=== PATIENT | male | born 1955 | race Caucasian/White ===

== ENCOUNTER 2016-07-27 11:04 | Day surgery (SDCO) | payer OTHER ==
[2016-07-27 11:03] LABS: BASOPHIL 0.5 % (0-2); EOSINOPHIL 1.8 % (0-5); HCT 45.6 % (42.0-52.0); HGB 15.9 g/dl (13.2-18.0); LYMPHOCYTE 27.4 % (15-48); MCH 32.1 pg (25.0-31.0); MCHC 34.9 g/dL (32.0-36.0); MCV 91.9 fL (78.0-100.0); MONOCYTE 7.3 % (0-12); MPV 9.9 fL (6.0-9.5); PLT 211 K/uL (150-400); RBC 4.96 M/uL (4.70-6.00); RDW 12.8 % (11.5-14.0); WBC 5.6 K/uL (4.0-10.5)
[2016-07-27 11:13] LABS: INR 0.94 (0.9-1.2); PROTHROMBIN TIME 12.2 SECONDS (11.7-14.0); PTT 28.2 SECONDS (23.2-31.4)
[2016-07-27 11:23] LABS: ALBUMIN 4.5 g/dL (3.4-4.8); BILIRUBIN - TOTAL 0.5 mg/dL (0.1-1.0); GLOBULIN (CALCULATION) 2.9 g/dL (2.2-4.2); MAGNESIUM 2.07 mg/dL (1.40-2.10); POTASSIUM 4.5 mmol/L (3.5-5.1); TOTAL PROTEIN 7.4 g/dL (6.4-8.3)
[2016-07-27 11:26] LABS: CKMB 2.99 ng/mL (0.97-4.94); MYOGLOBIN 38 ng/mL (26-65); PRO-BNP 63 pg/mL (0-125); TROPONIN T < 0.010 ng/mL
[2016-07-27 19:40] LABS: CKMB 2.17 ng/mL (0.97-4.94); TROPONIN T < 0.010 ng/mL
[2016-07-28 04:19] LABS: BASOPHIL 0.3 % (0-2); EOSINOPHIL 1.7 % (0-5); HCT 42.8 % (42.0-52.0); HGB 14.8 g/dl (13.2-18.0); MCH 31.9 pg (25.0-31.0); MCHC 34.6 g/dL (32.0-36.0); MCV 92.2 fL (78.0-100.0); MONOCYTE 8.3 % (0-12); MPV 9.7 fL (6.0-9.5); NEUTROPHIL 70.7 % (41-80); PLT 200 K/uL (150-400); RBC 4.64 M/uL (4.70-6.00); RDW 12.6 % (11.5-14.0); WBC 6.5 K/uL (4.0-10.5)
[2016-07-28 04:40] LABS: POTASSIUM 4.7 mmol/L (3.5-5.1)
== END 2016-07-28 12:00 | disposition admitted as inpatient to this hospital (09) ==
LOC: FER 11:04 → FTCU 14:25
PROVIDERS: Emergency Medicine; ADMIT Internal Medicine
DX: I24.9 Acute ischemic heart disease, unspecified (principal); I10 Essential (primary) hypertension; E11.9 Type 2 diabetes mellitus without complications; G20 Parkinson's disease; Z88.2 Allergy status to sulfonamides; Z82.49 Family history of ischemic heart disease and other diseases of the circulatory system; Z79.82 Long term (current) use of aspirin; Z79.84 Long term (current) use of oral hypoglycemic drugs; Z79.899 Other long term (current) drug therapy; Z98.890 Other specified postprocedural states
CPT/HCPCS: 36415; 71010; 80048; 80053; 80061; 82550; 82553; 82962; 83036; 83735; 83874; 83880; 84484; 85025; 85610; 85730; 93005; 94010; G0378; J2405

== ENCOUNTER → 2020-09-08 | Day surgery (SDC) | payer OTHER ==
[~2020-09-08] MED LIST: ASPIRIN EC325 MG PO; AZITHROMYCIN250 MG PO; CARBIDOPA-LEVO1 EAC2 PO; CEFDINIR300 MG PO; COZAAR50 MG PO; CRESTOR10 MG PO; FOLIC ACID1 MG PO; GLUCOTROL10 MG PO; HCTZ12.5 MG PO; LIPITOR 10MG TA10 MG PO; MEDROL 4MG DOSEP4 MG PO; METFORMIN HCL500 MG PO; PROTONIX 40MG T40 MG PO; SYMBICORT 80-10.2 GM INH; TENORMIN50 MG PO; VENTOLIN HFA IN18 GM INH; VITAMIN B-121000 MC1 PO; vitamin B3 PO
[2020-09-08 08:20] LABS: HCT 42.2 % (42.0-52.0); HGB 14.7 g/dl (13.2-18.0); MCH 33.3 pg (25.0-31.0); MCHC 34.8 g/dL (32.0-36.0); MCV 95.5 fL (78.0-100.0); MPV 9.4 fL (6.0-9.5); RBC 4.42 M/uL (4.70-6.00); RDW 12.8 % (11.5-14.0); WBC 6.7 K/uL (4.0-10.5)
[2020-09-08 08:30] LABS: ALBUMIN 4.1 g/dL (3.4-5.0); BILIRUBIN - TOTAL 0.7 mg/dL (0.2-1.0); BUN/CREAT RATIO (CALC) 14.6 RATIO; CREATININE 1.03 mg/dL (0.67-1.17); GLOBULIN (CALCULATION) 3.5 g/dL; POTASSIUM 4.4 mmol/L (3.5-5.1); TOTAL PROTEIN 7.6 g/dL (6.4-8.2)
== END | disposition home or self-care (01) ==
LOC: FAS 07:39
PROVIDERS: Surgery
DX: Z12.11 Encounter for screening for malignant neoplasm of colon (principal); K57.30 Diverticulosis of large intestine without perforation or abscess without bleeding; D12.6 Benign neoplasm of colon, unspecified; J45.909 Unspecified asthma, uncomplicated; I25.10 Atherosclerotic heart disease of native coronary artery without angina pectoris; I10 Essential (primary) hypertension; K21.9 Gastro-esophageal reflux disease without esophagitis; E11.9 Type 2 diabetes mellitus without complications; E78.5 Hyperlipidemia, unspecified; G20 Parkinson's disease; Z20.822 Contact with and (suspected) exposure to COVID-19; Z88.2 Allergy status to sulfonamides; Z79.84 Long term (current) use of oral hypoglycemic drugs; Z79.899 Other long term (current) drug therapy; Z98.890 Other specified postprocedural states; Z87.891 Personal history of nicotine dependence; Z86.010 Personal history of colon polyps
CPT/HCPCS: 36415; 71045; 80053; 82962; J1610; J2250; J2704; J7120

== ENCOUNTER 2020-09-10 10:39 | Day surgery (SDCO) | payer OTHER, MEDICARE ==
[~2020-09-10] VITALS: Ht 185.4 cm; Wt 109.4 kg
[~2020-09-10 10:39] MED LIST changes: -ASPIRIN EC325 MG PO; -AZITHROMYCIN250 MG PO; -CEFDINIR300 MG PO; -CRESTOR10 MG PO; -LIPITOR 10MG TA10 MG PO; -MEDROL 4MG DOSEP4 MG PO; -PROTONIX 40MG T40 MG PO
[2020-09-10 12:16] LABS: BASOPHIL 0.5 % (0-2); EOSINOPHIL 2.3 % (0-7); HCT 41.3 % (42.0-52.0); HGB 14.3 g/dl (13.2-18.0); LYMPHOCYTE 21.6 % (15-48); MCH 33.6 pg (25.0-31.0); MCHC 34.6 g/dL (32.0-36.0); MCV 96.9 fL (78.0-100.0); MONOCYTE 9.4 % (0-12); MPV 9.5 fL (6.0-9.5); NEUTROPHIL 65.9 % (41-80); NRBC 0; PLT 163 K/uL (150-400); RBC 4.26 M/uL (4.70-6.00); WBC 8.8 K/uL (4.0-10.5)
[2020-09-10 12:37] LABS: ALBUMIN 3.7 g/dL (3.4-5.0); BILIRUBIN - TOTAL 0.7 mg/dL (0.2-1.0); BUN/CREAT RATIO (CALC) 15.8 RATIO; CREATININE 1.14 mg/dL (0.67-1.17); POTASSIUM 4.1 mmol/L (3.5-5.1); TOTAL PROTEIN 7.7 g/dL (6.4-8.2)
[2020-09-10 16:36] LABS: CORONAVIRUS 2019 SARS-COV-2 NEGATIVE (NEGATIVE); INFLUENZA A NAA NEGATIVE (NEGATIVE)
[2020-09-11 06:36] LABS: BASOPHIL 0.1 % (0-2); EOSINOPHIL 0 % (0-7); HCT 39.8 % (42.0-52.0); HGB 13.8 g/dl (13.2-18.0); LYMPHOCYTE 8.5 % (15-48); MCH 33.7 pg (25.0-31.0); MCHC 34.7 g/dL (32.0-36.0); MCV 97.3 fL (78.0-100.0); MONOCYTE 4.9 % (0-12); MPV 9.6 fL (6.0-9.5); NEUTROPHIL 85.8 % (41-80); NRBC 0; PLT 193 K/uL (150-400); RBC 4.09 M/uL (4.70-6.00); RDW 12.9 % (11.5-14.0); WBC 10.9 K/uL (4.0-10.5)
[2020-09-11 07:12] LABS: BUN/CREAT RATIO (CALC) 17.9 RATIO; CREATININE 1.17 mg/dL (0.67-1.17); POTASSIUM 4.5 mmol/L (3.5-5.1)
[2020-09-11] MEDS ORDERED: CRESTOR10 MG PO (15:31)
[2020-09-11] MEDS ORDERED: CEFDINIR300 MG PO (15:31)
[2020-09-11] MEDS ORDERED: AZITHROMYCIN250 MG PO (15:31)
[2020-09-11] MEDS ORDERED: MEDROL 4MG DOSEP4 MG PO (15:31)
[2020-09-11] MEDS ORDERED: PROTONIX 40MG T40 MG PO (15:31)
[2020-09-11] MEDS ORDERED: ASPIRIN EC325 MG PO (15:31)
[2020-09-11] MEDS ORDERED: LIPITOR 10MG TA10 MG PO (15:41)
== END 2020-09-11 16:40 | disposition home or self-care (01) ==
LOC: FER 10:39 → FMS 18:13
PROVIDERS: Emergency Medicine; Nurse Practitioner; ADMIT Internal Medicine
DX: G45.9 Transient cerebral ischemic attack, unspecified (principal); J18.9 Pneumonia, unspecified organism; J45.901 Unspecified asthma with (acute) exacerbation; K21.9 Gastro-esophageal reflux disease without esophagitis; G20 Parkinson's disease; I10 Essential (primary) hypertension; E11.9 Type 2 diabetes mellitus without complications; E78.5 Hyperlipidemia, unspecified; Z87.891 Personal history of nicotine dependence; Z79.84 Long term (current) use of oral hypoglycemic drugs; Z79.899 Other long term (current) drug therapy; Z88.2 Allergy status to sulfonamides; Z20.822 Contact with and (suspected) exposure to COVID-19
CPT/HCPCS: 36415; 70450; 70544; 70548; 70551; 71045; 71275; 80048; 80053; 84443; 85025; 93005; 94010; 94640; 94664; 94667; 94668; G0378; J0456; J0696; J1650; J2920; J2930; J7050; Q9967; U0002